=== PATIENT | female | born 1960 | race Caucasian/White ===

== ENCOUNTER 2020-07-23 16:41 | Emergency (ER) | payer BC ==
--- NOTE | 2020-07-23 17:58 | EDM.PDOC ---
ED HPI GENERAL MEDICAL PROBLEM - General Chief Complaint: Cardiovascular Problem Stated Complaint: HIGH BLOOD PRESSURE Time Seen by Provider: 07/23/20 17:18 Source of Information: Reports: Patient, RN Notes Reviewed History Limitations: Reports: No Limitations - History of Present Illness INITIAL COMMENTS - FREE TEXT/NARRATIVE: Patient is a 60-year-old female presenting to the emergency department with complaints of elevated blood pressure and a mild generalized headache. She states that shot she saw her primary care provider, Gale Benitez NP, in the clinic today. She was found to have an elevated blood pressure, however she cannot remember what the reading specifically was. States she went home this evening and checked her blood pressure at home. It was initially 180/94. She rechecked and it came up to 208/104. She is taking atenolol 25 mg daily which she states she has been on for quite a long time. She does state that at one point she was on a water pill, hydrochlorothiazide, as well and states she tolerated it well, however she does not know why she was taken off of this medication. She took extended release Tylenol about 2 hours prior to coming to coming to ER and states her headache has improved. It is still there but quite mild. Denies any vision changes. Denies any dizziness. Initial blood pressure in triage was 199/101, however after resting for a period time, it came down to 144/84. Other vital signs on triage were stable. Headache Pain Score (Numeric/FACES): 3 - Related Data Allergies Allergy/AdvReac Type Severity Reaction Status Date / Time cefaclor [From [facility]] Allergy Severe Hives Verified 07/23/20 17:15 Penicillins Allergy Severe Hives Verified 07/23/20 17:15 Sulfa (Sulfonamide Allergy Severe Vomiting Verified 07/23/20 17:15 Antibiotics) Home Meds: Home Meds FLUoxetine [PROzac] 10 mg PO DAILY 07/23/20 [History] atenoloL [Atenolol] 25 mg PO DAILY 07/23/20 [History] buPROPion [Wellbutrin] 200 mg PO DAILY 07/23/20 [History] hydroCHLOROthiazide [Hydrochlorothiazide] 25 mg PO DAILY #30 tab 07/23/20 [Rx] Past Medical History HEENT History: Reports: Allergic Rhinitis Cardiovascular History: Reports: Hypertension Respiratory History: Reports: PE - Infectious Disease History Infectious Disease History: Reports: Chicken Pox, Shingles - Past Surgical History Musculoskeletal Surgical History: Reports: Other (See Below) Other Musculoskeletal Surgeries/Procedures:: meniscus surgery Social & Family History - Tobacco Use Tobacco Use Status *Q: Never Tobacco User - Caffeine Use Caffeine Use: Reports: Coffee - Recreational Drug Use Recreational Drug Use: No ED ROS GENERAL - Review of Systems Review Of Systems: See Below Constitutional: Reports: No Symptoms HEENT: Reports: No Symptoms. Denies: Vision Change Respiratory: Reports: No Symptoms Cardiovascular: Reports: No Symptoms Endocrine: Reports: No Symptoms GI/Abdominal: Reports: No Symptoms : Reports: No Symptoms Musculoskeletal: Reports: No Symptoms Skin: Reports: No Symptoms Neurological: Reports: Headache Psychiatric: Reports: No Symptoms Hematologic/Lymphatic: Reports: No Symptoms Immunologic: Reports: No Symptoms ED EXAM, GENERAL - Physical Exam Exam: See Below Exam Limited By: No Limitations General Appearance: Alert, WD/WN, No Apparent Distress Eye Exam: Bilateral Eye: PERRL Respiratory/Chest: No Respiratory Distress, Lungs Clear, Normal Breath Sounds, No Accessory Muscle Use, Chest Non-Tender Cardiovascular: Normal Peripheral Pulses, Regular Rate, Rhythm, No Edema, No Gallop, No JVD, No Murmur, No Rub GI/Abdominal: Normal Bowel Sounds, Soft, Non-Tender, No Organomegaly, No Distention, No Abnormal Bruit, No Mass Neurological: Alert, Oriented, CN II-XII Intact, Normal Cognition, Normal Gait, Normal Reflexes, No Motor/Sensory Deficits Psychiatric: Normal Affect, Normal Mood Skin Exam: Warm, Dry, Intact, Normal Color, No Rash Course - Vital Signs Last Recorded V/S: Last Vital Signs Temp 97.2 F 07/23/20 17:11 Pulse 63 07/23/20 19:07 Resp 18 07/23/20 17:11 BP 166/94 H 07/23/20 19:07 Pulse Ox 95 07/23/20 19:07 - Orders/Labs/Meds Labs: Laboratory Tests 07/23/20 07/23/20 Range/Units 17:57 17:57 WBC 5.47 (3.98-10.04) K/mm3 RBC 4.73 (3.98-5.22) M/mm3 Hgb 14.1 (11.2-15.7) gm/dl Hct 42.5 (34.1-44.9) % MCV 89.9 (79.4-94.8) fl MCH 29.8 (25.6-32.2) pg MCHC 33.2 (32.2-35.5) g/dl RDW Std Deviation 42.0 (36.4-46.3) fL Plt Count 192 (182-369) K/mm3 MPV 10.1 (9.4-12.3) fl Neut % (Auto) 42.4 (34.0-71.1) % Lymph % (Auto) 47.7 (19.3-51.7) % [place] % (Auto) 8.0 (4.7-12.5) % Eos % (Auto) 1.5 (0.7-5.8) Baso % (Auto) 0.4 (0.1-1.2) % Neut # (Auto) 2.32 (1.56-6.13) K/mm3 Lymph # (Auto) 2.61 (1.18-3.74) K/mm3 [place] # (Auto) 0.44 H (0.24-0.36) K/mm3 Eos # (Auto) 0.08 (0.04-0.36) K/mm3 Baso # (Auto) 0.02 (0.01-0.08) K/mm3 Sodium 141 (136-145) mEq/L Potassium 4.4 (3.5-5.1) mEq/L Chloride 103 (98-107) mEq/L Carbon Dioxide 29 (21-32) mEq/L Anion Gap 13.4 (5-15) BUN 19 H (7-18) mg/dL Creatinine 1.0 (0.55-1.02) mg/dL Est Cr Clr Drug Dosing 45.71 mL/min Estimated GFR (MDRD) 57 (>60) mL/min BUN/Creatinine Ratio 19.0 H (14-18) Glucose 84 (74-106) mg/dL Calcium 9.1 (8.5-10.1) mg/dL Magnesium 1.9 (1.8-2.4) mg/dl Total Bilirubin 0.3 (0.2-1.0) mg/dL AST 18 (15-37) U/L ALT 23 (14-59) U/L Alkaline Phosphatase 88 (46-116) U/L Troponin I < 0.017 (0.00-0.056) ng/mL C-Reactive Protein 0.3 (<1.0) mg/dL Total Protein 6.8 (6.4-8.2) g/dl Albumin 3.8 (3.4-5.0) g/dl Globulin 3.0 gm/dL Albumin/Globulin Ratio 1.3 (1-2) Free T4 0.95 (0.76-1.46) ng/dL TSH 3rd Generation 2.348 (0.358-3.74) uIU/mL - Re-Assessments/Exams Free Text/Narrative Re-Assessment/Exam: Patient is a 60-year-old female presenting to the emergency department with complaints of elevated blood pressure and mild headache. Blood pressure on triage was elevated at 199/101, however by the time of my exam it had come down to 144/84. She took Tylenol prior to come to the ER and states that her headache has improved significantly. She states that in the past she has been on hydrochlorothiazide and she cannot remember why they took her off of it, however she states she did tolerate it well. Last time she had a thyroid check was over a year ago. I will do some baseline lab work here including CBC, CMP, CRP, troponin, TSH, free T4. 07/23/20 19:20 Patient's work-up was grossly unremarkable. Thyroid function is normal. Her blood pressure has ranged from 144/84 at its lowest to 166/94 which was her last reading. We will start her on hydrochlorothiazide in addition to her atenolol as she is taken this safely in the past. Recommend that she continue to monitor her blood pressures at home and follow-up with her primary care provider. Discharge instructions as documented Departure - Departure Time of Disposition: 19:21 Disposition: Home, Self-Care 01 Condition: Good Clinical Impression: Hypertension Qualifiers: Hypertension type: unspecified Qualified Code(s): I10 - Essential (primary) hypertension Prescriptions: hydroCHLOROthiazide [Hydrochlorothiazide] 25 mg PO DAILY #30 tab Instructions: Hypertension, Adult Referrals: Gale Benitez NP [Primary Care Provider] - Forms: ED Department Discharge Additional Instructions: You were seen in the emergency department today for high blood pressure with headache. Initial blood pressure was found to be elevated at 199/101. Lab work was completed and found to be normal. Thyroid function is normal. Blood pressure did come down to 166/94 without intervention. A prescription for hydrochlorothiazide has been sent to [facility] on [address]. Recommend that you begin taking this in addition to your atenolol. Continue to monitor your blood pressure readings at home and follow-up with your primary care provider as planned. Return to the ER as needed. Sepsis Event Note (ED) - Evaluation Sepsis Screening Result: No Definite Risk - Focused Exam Vital Signs: Vital Signs Temp Pulse Resp BP Pulse Ox 07/23/20 19:07 63 166/94 H 95 07/23/20 17:11 97.2 F 64 18 199/101 H 98
== END 2020-07-23 19:30 | disposition home or self-care (01) ==
LOC: JD.ED 16:41
DX: I10 Essential (primary) hypertension (principal); Z88.1 Allergy status to other antibiotic agents; Z88.0 Allergy status to penicillin; Z88.2 Allergy status to sulfonamides; Z79.899 Other long term (current) drug therapy
CPT/HCPCS: 36415; 80053; 83735; 84439; 84443; 84484; 85025; 86140; 99283

== ENCOUNTER 2021-11-24 09:44 | Day surgery (SDC) | payer BC ==
[~2021-11-24 09:44] MED LIST: Acetaminophen 325 MG Tab PO SCH; Lactated Ringers 1,000 ML IV SCH; Lidocaine 1%/Sod Bicarbonate in NS 8.4% 1 ML Syringe IDERM PRN; Morphine 8 MG, EPINEPHrine 0.3 MG, Ketorolac 30 MG, Sodium Chloride 0.9% 17.9 ML PRN; Pregabalin 25 MG Cap PO SCH; Sodium Chloride 0.9% 10 ML Syringe FLUSH PRN; Sodium Chloride 0.9% 10 ML Syringe FLUSH SCH; oxyCODONE ER 10 MG TAB.ER PO SCH
[2021-11-24] MEDS ORDERED: Vancomycin 1 GM SDV ONE (10:00)
== END 2021-11-24 10:43 | disposition home or self-care (01) ==
LOC: JD.SDS 09:44
PROVIDERS: ATTEND Orthopaedic Surgery
DX: M25.562 Pain in left knee (principal); F41.9 Anxiety disorder, unspecified; F32.A Depression, unspecified; E78.00 Pure hypercholesterolemia, unspecified; I10 Essential (primary) hypertension; I25.10 Atherosclerotic heart disease of native coronary artery without angina pectoris; E66.9 Obesity, unspecified; Z68.30 Body mass index [BMI] 30.0-30.9, adult; Z88.1 Allergy status to other antibiotic agents; Z88.0 Allergy status to penicillin; Z88.2 Allergy status to sulfonamides; Z79.899 Other long term (current) drug therapy; Z53.09 Procedure and treatment not carried out because of other contraindication; Z86.711 Personal history of pulmonary embolism; Z86.718 Personal history of other venous thrombosis and embolism
CPT/HCPCS: A9270-GY; J3370; J7120

== ENCOUNTER 2021-12-01 08:03 | Day surgery (SDC) | payer BC ==
[~2021-12-01 08:03] MED LIST changes: -Acetaminophen 325 MG Tab PO SCH; +Lidocaine 1% 4 ML ONE; +Midazolam 1 MG/ML 2 ML SDV ONE; -Morphine 8 MG, EPINEPHrine 0.3 MG, Ketorolac 30 MG, Sodium Chloride 0.9% 17.9 ML PRN; +Ondansetron 4 MG/2 ML SDV ONE; -Pregabalin 25 MG Cap PO SCH; +Propofol 200 MG/20 ML SDV ONE; -oxyCODONE ER 10 MG TAB.ER PO SCH
[2021-12-01] MEDS ORDERED: Ondansetron 4 MG/2 ML SDV IVPUSH PRN ×2 (08:26→10:29)
[2021-12-01] MEDS ORDERED: HYDROmorphone 0.5 MG/0.5 ML Syringe IVPUSH PRN (08:26)
[2021-12-01] MEDS ORDERED: fentaNYL 100 MCG/2 ML SDV IVPUSH PRN ×2 (08:26→10:29)
[2021-12-01] MEDS ORDERED: EPINEPHrine 1 MG/ML SDV ONE (08:33)
[2021-12-01] MEDS ORDERED: Ropivacaine 0.5% 5 MG/ML 30 ML SDV ONE (08:34)
[2021-12-01] MEDS ORDERED: Pregabalin 25 MG Cap PO SCH (09:30)
[2021-12-01] MEDS ORDERED: Acetaminophen 325 MG Tab PO SCH (09:30)
[2021-12-01] MEDS ORDERED: oxyCODONE ER 10 MG TAB.ER PO SCH (09:30)
[2021-12-01] MEDS ORDERED: Propofol 200 MG/20 ML SDV ONE (10:05)
[2021-12-01] MEDS ORDERED: ePHEDrine 50 MG/ML SDV ONE (10:11)
[2021-12-01] MEDS ORDERED: Lactated Ringers 1,000 ML ONE (10:19)
[2021-12-01] MEDS ORDERED: diphenhydrAMINE 50 MG/ML SDV IVPUSH PRN (10:29)
[2021-12-01] MEDS: Morphine 8 MG, EPINEPHrine 0.3 MG, Ketorolac 30 MG, Sodium Chloride 0.9% 7.9 ML PRN ×8 (10:49→10:50)
[2021-12-01] MEDS: Vancomycin 1 GM SDV ONE ×2 (10:49→10:57)
[2021-12-01] MEDS ORDERED: oxyCODONE 5 MG Tab PO PRN (11:48)
[2021-12-01] MEDS ORDERED: hydrOXYzine HCl 25 MG Tab PO ONE (12:00)
[2021-12-01] MEDS ORDERED: Cyclobenzaprine 10 MG Tab PO ONE (12:00)
== END 2021-12-01 14:45 | disposition home or self-care (01) ==
LOC: JD.SDS 08:03
PROVIDERS: ATTEND Orthopaedic Surgery
DX: M17.12 Unilateral primary osteoarthritis, left knee (principal); I25.10 Atherosclerotic heart disease of native coronary artery without angina pectoris; E66.9 Obesity, unspecified; E78.00 Pure hypercholesterolemia, unspecified; I10 Essential (primary) hypertension; R94.31 Abnormal electrocardiogram [ECG] [EKG]; Z88.1 Allergy status to other antibiotic agents; Z88.2 Allergy status to sulfonamides; Z88.0 Allergy status to penicillin; Z79.899 Other long term (current) drug therapy; Z86.711 Personal history of pulmonary embolism; Z86.718 Personal history of other venous thrombosis and embolism; Z68.31 Body mass index [BMI] 31.0-31.9, adult
CPT/HCPCS: 27447; 73560; 97110; 97116; 97161; A9270; C1713; C1776; J0171; J1885; J2250; J2270; J2405; J2704; J2795; J3370; J7120; 01402; 64447; 76942

== ENCOUNTER 2022-02-26 09:46 | Day surgery (SDC) | payer BC ==
[~2022-02-26 09:46] MED LIST changes: -Lidocaine 1% 4 ML ONE; +Lidocaine 1% 6 ML ONE; -Midazolam 1 MG/ML 2 ML SDV ONE; -Ondansetron 4 MG/2 ML SDV ONE
[2022-02-26] MEDS ORDERED: Propofol 200 MG/20 ML SDV ONE (11:24)
[2022-02-26] MEDS ORDERED: Ondansetron 4 MG/2 ML SDV IVPUSH PRN (11:59)
[2022-02-26] MEDS ORDERED: HYDROmorphone 0.5 MG/0.5 ML Syringe IVPUSH PRN (11:59)
[2022-02-26] MEDS ORDERED: fentaNYL 100 MCG/2 ML SDV IVPUSH PRN (11:59)
== END 2022-02-26 12:25 | disposition home or self-care (01) ==
LOC: JD.SDS 09:46
PROVIDERS: ATTEND Surgery
DX: D12.5 Benign neoplasm of sigmoid colon (principal); F32.A Depression, unspecified; I12.9 Hypertensive chronic kidney disease with stage 1 through stage 4 chronic kidney disease, or unspecified chronic kidney disease; E78.00 Pure hypercholesterolemia, unspecified; N18.32 Chronic kidney disease, stage 3b; F41.9 Anxiety disorder, unspecified; I25.10 Atherosclerotic heart disease of native coronary artery without angina pectoris; E66.9 Obesity, unspecified; Z68.30 Body mass index [BMI] 30.0-30.9, adult; Z98.890 Other specified postprocedural states; Z88.0 Allergy status to penicillin; Z88.2 Allergy status to sulfonamides; Z88.1 Allergy status to other antibiotic agents; Z86.718 Personal history of other venous thrombosis and embolism; Z86.711 Personal history of pulmonary embolism
CPT/HCPCS: 45385; J2704; J7120; 00811